=== PATIENT | female | born 1945 | race Caucasian/White ===

== ENCOUNTER 2016-12-04 07:12 | Emergency (ER) | payer MEDICARE ==
[~2016-12-04] VITALS: Ht 154.9 cm; Wt 66.0 kg
[~2016-12-04 07:12] MED LIST: CALC600T10 PO; CLON.5 PO; COQ1100C PO; HCTZ25 PO; LOSA50TA PO; MAGN500T4 PO; OMEG100010 PO; PRIL10CA PO; RANI1TAB5 PO; SIMV20 PO; TAB-TAB PO; TOPR50TA PO; VITA500T83 PO; ZOFR4TAB3 PO; [UNRECOGNIZED DRUG - CODE] PO
[2016-12-04 07:14] VITALS: BP 180/83; PULSE 80; RESP 16; TEMP 98.1; O2SAT 98
--- NOTE | 2016-12-04 07:42 | PD ---
HPI Chief Complaint: Skin Problem Time Seen by Provider: 07:37 Travel History International Travel<30 days: No Contact w/Intl Traveler<30days: No Traveled to known affect area: No History of Present Illness HPI 71-year-old female presents to the emergency department requesting removal of the head of a tick under her right breast. The tick was found this morning and attempted to remove and had remained and was unable to be removed. Patient denies fever, chills, nausea, vomiting. Denies headache, fatigue, muscle aches , rash. No other complaints to report at this time. Allergies to Compazine and erythromycin. History of hypertension. Has a established primary care provider. No other modifying factors or associated signs and symptoms. PFSH Past Medical History Cancer: Yes (SKIN) High Cholesterol: Yes Chemotherapy: Yes Diverticulitis: Yes GERD: Yes Hiatal Hernia: Yes Hypertension: Yes Inguinal Hernia: Yes ?: Not Tubal Ligation: Yes Past Surgical History Genitourinary Surgery: Yes (HYSTERECTOMY, TUBAL) Hysterectomy: Yes Social History Alcohol Use: Yes (SOCIAL) Tobacco Use: No Substance Use: No Allergies-Medications (Allergen,Severity, Reaction): Coded Allergies: Compazine (Verified Allergy, Severe, TONGUE SWELLING, 12/04/16) Erythromycin (Verified Adverse Reaction, Severe, Diarrhea, 12/04/16) Reported Meds & Prescriptions Reported Meds & Active Scripts Active Zofran ODT (Ondansetron HCl) 4 Mg Tab 4 Mg PO Q6 PRN Reported Magnesium 500 Mg Tab 1,000 Mg PO TID Multivitamin (Multivitamins) 1 Tab Tab 1 Tab PO DAILY Ranitidine 75 (Ranitidine HCl) 75 Mg Tab 150 Mg PO DAILY Vitamin C (Ascorbic Acid) 500 Mg Tab 500 Mg PO DAILY Calcium + D (Calcium Carbonate-Vitamin D) 600 Mg Tab 1,200 Mg PO DAILY Doswell 3 (Doswell-3 Fatty Acids) 1,000 Mg Cap 2,000 Mg PO BID E 400 Blended (Vitamin E) 400 Unit Cap 400 Unit PO DAILY Coq10 (Coenzyme Q10 (Ubidecarenone)) 100 Mg Cap 100 Mg PO DAILY Hydrodiuril (Hydrochlorothiazide) 25 Mg Tab 25 Mg PO DAILY Losartan Potassium 50 MG (Losartan Potassium) 50 Mg Tab 50 Mg PO DAILY Zocor (Simvastatin) 20 Mg Tab 20 Mg PO HS Klonopin (Clonazepam) 0.5 Mg Tab 0.5 Mg PO HS Toprol Xl (Metoprolol Succinate) 50 Mg Tabcr 50 Mg PO BID Prilosec (Omeprazole) 10 Mg Cap 20 Mg PO DAILY Review of Systems Except as stated in HPI: all other systems reviewed are Neg Physical Exam Narrative GENERAL: Well-nourished, well-developed female patient, in no acute distress; afebrile, nontoxic-appearing SKIN: Warm and dry. Approximately 1 cm of circular erythema under the right breast with head of the tick noted; without edema, drainage. HEAD: Atraumatic. Normocephalic. EYES: Pupils equal and round. No scleral icterus. No injection or drainage. ENT: Mucosa pink and moist. Airway patent. NECK: Trachea midline. CARDIOVASCULAR: Regular rate. RESPIRATORY: No accessory muscle use. GASTROINTESTINAL: Rounded. MUSCULOSKELETAL: No obvious deformities. No clubbing. No cyanosis. No edema. NEUROLOGICAL: Awake and alert. Oriented 3. No obvious cranial nerve deficits. Motor grossly within normal limits. Normal speech. PSYCHIATRIC: Appropriate mood and affect; insight and judgment normal. Data Data Last Documented VS Vital Signs Date Time Temp Pulse Resp B/P Pulse Ox O2 Delivery O2 Flow Rate FiO2 12/04/16 07:14 98.1 80 16 180/83 98 Room Air MDM Medical Decision Making Medical Screen Exam Complete: Yes Emergency Medical Condition: Yes Medical Record Reviewed: Yes Differential Diagnosis Encounter for tick removal, tick bite, medical clearance Narrative Course 71-year-old female with an embedded tick head under the right breast. Tweezers were used to remove the head; a small portion of the tick still remained in the skin. Patient is afebrile and nontoxic-appearing. She has no other medical complaints at this time. Patient is medically cleared and stable for discharge. Discussed reasons to return to the emergency department. Instructed patient to follow up with primary care provider. Patient agrees with treatment plan. The patients vital signs are stable and the patient is stable for outpatient follow-up and treatment. Patient discharged home, stable and in no acute distress. Diagnosis Primary Impression: Tick bite with subsequent removal of tick Referrals: Primary Care Physician Patient Instructions: General Instructions, Tick Bite (ED) Additional Instructions: Watch for common symptoms of tick-related illnesses such as fever, chills, aches , pains, rash Keep area clean and dry Follow-up with primary care provider Med/Other Pt SpecificInfo: Prescription(s) given Disposition: 01 DISCHARGE HOME Condition: Stable Cydney No Dec 04, 2016 07:42
== END 2016-12-04 08:06 | disposition home or self-care (01) ==
LOC: NEPB 07:12
DX: S20.161A Insect bite (nonvenomous) of breast, right breast, initial encounter (principal); W57.XXXA Bitten or stung by nonvenomous insect and other nonvenomous arthropods, initial encounter
CPT/HCPCS: 99282